=== PATIENT | male | born 1960 ===

== ENCOUNTER 2022-08-22 05:45 | Day surgery (SDC) | payer OTHER ==
[~2022-08-22 05:45] MED LIST: CLONAZEPAM0.5 MG PO; HORIZANT600 MG PO; MOBIC PO; MULTI PO; NAPR500T14 PO; NORFLEX PO; PREVACID30 MG PO; TAMS0.4C PO; VITAMIN D PO; ZANAFLEX2 M1 PO; ZOCOR PO; [UNRECOGNIZED DRUG - OTHER] IM
== END 2022-08-22 12:15 | disposition home or self-care (01) ==
LOC: CIR.AMB 05:45
PROVIDERS: ATTEND Colon & Rectal Surgery
DX: K60.1 Chronic anal fissure (principal); K62.4 Stenosis of anus and rectum; Z20.822 Contact with and (suspected) exposure to COVID-19; Z91.013 Allergy to seafood; Z99.89 Dependence on other enabling machines and devices; G47.33 Obstructive sleep apnea (adult) (pediatric); R73.03 Prediabetes; G43.909 Migraine, unspecified, not intractable, without status migrainosus; K21.9 Gastro-esophageal reflux disease without esophagitis